=== PATIENT | female | born 1945 | race Caucasian/White ===

== ENCOUNTER → 2017-03-31 | Day surgery (SDC) | payer MEDICARE ==
[~2017-03-31] VITALS: Ht 165.1 cm; Wt 89.3 kg
[~2017-03-31] MED LIST: ACYC200C PO; B12 SUBCUTA079; BUPR150T12 PO; CHOL40003 PO; CLOB59SP3 TP; CYCL10TA9 PO; CeFAZolin 2 Gm/50 mL D5W Duplex Bag IV ONE; CeFAZolin 2 Gm/50 mL D5W IV Premix IV ONE; DULO30CA PO; Dexamethasone 4 mg/mL Inj IVPUSH PRN; Dexamethasone 4 mg/mL Inj ONE; EPHEDrine Sulfate 50 mg/mL Inj IVPUSH PRN; GABA800T2 PO; HYDR-4003 PO; HYDROcodone-APAP 5-325 mg Tablet PO PRN; LISI10TA PO; Lactated Ringer's 1,000 ML IV ONE; Lactated Ringer's 1,000 ML IV SCH; Lactated Ringer's 500 ML IV PRN; MetoCLOpramide 5 mg/mL 2 mL Inj IVPUSH PRN; Ondansetron 2 mg/mL 2 mL Inj IVPUSH PRN; Phenylephrine 10,000 mCg/mL Inj IVPUSH PRN; Propofol 10,000 mCg/mL 20 mL Inj ONE; TOPI25TA26 PO; fentaNYL-PF 50 mCg/mL 2 mL Inj IVPUSH PRN; fentaNYL-PF 50 mCg/mL 2 mL Inj ONE
[2017-03-31 11:38] VITALS: BP 134/85; PULSE 77; RESP 16; O2SAT 99
--- NOTE | 2017-03-31 14:26 | PCM.HPANE ---
Patient Data Surgeon Admitting Provider: Attending Provider:Bernadette Rocha MD Primary Care Physician:Tao Mckeon DO Other Provider:Linn Stovallingham Anesthesia Reason for Visit Gross Hematuria Ht/WT & BMI Height (Feet): 5 Height (Inches): 5 Weight (Kilograms): 87.99 Body Mass Index 32.00 Allergies Coded Allergies: hydromorphone (Verified Allergy, Severe, Severe nausea and vomition, ) oxycodone (Verified Allergy, Intermediate, Nausea vomiting. feels loopy, ) Uncoded Allergies: BEE STINGS (Allergy, Intermediate, 03/25/17) Past Anesthesia History Anesthesia History: Denies:: Abnormal Airway, Anesthesia Reactions, Difficult Intubation, Fam Anesthesia Reaction, Fam Malignant Hypertherm, Malignant Hyperthermia Diabetes History Hx Diabetes?: No MRSA MRSA: No Medications Hypertension Medication: Yes (Lisinopril) Reported Medications Acyclovir 200 Mg Jxdkbdh405 Mg PO TID Ref 0 03/25/17 Clobetasol Propionate 0.05 % Spray59 Ml TP 03/25/17 Topiramate (Topamax)25 Mg Wnzdto81 Mg PO BID Ref 0 03/25/17 Bupropion ER 150 Mg Tablet.er300 Mg PO DAILY Ref 0 12/18/16 Cholecalciferol (Vitamin D3) (Vitamin D3)4,000 Unit Capsule4,000 Unit PO DAILY 12/18/16 Cyclobenzaprine 10 Mg Jpgpon10 Mg PO HS PRN Spasm Ref 0 12/18/16 Duloxetine (Cymbalta)30 Mg Capsule.dr30 Mg PO DAILY Ref 0 12/18/16 Gabapentin 800 Mg Laqxyv278 Mg PO BID Ref 0 12/18/16 Hydrocodone-Acetaminophen 5-325 mg 1 Each Tablet1 Tablet PO Q4H PRN For Pain Ref 0 12/18/16 Lisinopril 10 Mg Hatdlh52 Mg PO DAILY Ref 0 12/18/16 [B12 ] No Conflict Check [id number] Qmnthly 12/18/16 ON HOLD PER PATIENT 06/02/13 Discontinued Reported Medications Omeprazole 20 Mg Capsule.dr20 Mg PO DAILY Ref 0 12/18/16 Topiramate 50 Mg Cgisvv45 Mg PO HS Ref 0 12/18/16 Naproxen 250 Mg Gcqolm904 Mg PO BID Ref 0 12/04/16 History History of ENT Problems?: Yes HEENT History: Positive for:: TMJ (pain ) Denies:: Abnormal Airway Cataracts Difficult Intubation Dysphagia Glaucoma Hearing Problem Sinus Problem Denture Type: None Teeth Condition: Within Normal Limits Hx of Heart Problems?: Yes Cardiovascular History: Positive for:: Hypertension Irregular Heartbeat Denies:: AICD Abdominal Aortic Aneurism Atrial Fibrillation Cardiac Surgery Chest Pain Congestive Heart Failure Coronary Artery Disease Edema Heart Murmur Pacemaker Peripheral Vascular Rheumatic Fever Thrombophlebitis Valvular Heart Disease Hx of Respiratory Problem?: No Respiratory History: Denies:: Asthma COPD Chest Surgery Cough Dyspnea Emphysema Hemoptysis Oxygen Administration Pneumonia Pulmonary Embolism Tuberculosis Use of C-PAP Machine Use of Inhalers / NEBS Hx Neurologic Problems?: No Neurological History: Positive for:: Headaches Hx of GI Problems?: No Hx of Problems?: No Female Hx: Positive for:: Problems with Breasts? Denies:: Currently Endometriosis Pelvic Inflammatory Hx Musculoskeletal Problems?: Yes Musculoskeletal History: Positive for:: Back Injury (Cervical fusions C6-7, Lower back discomfort ) Denies:: Degenerative Joint Fibromyalgia Joint Replacement Musculoskeletal Trauma Myasthenia Gravis Osteoarthritis (hands, shoulders) Rheumatoid Arthritis Systemic Lupus Hx of Psycho/Social Problems?: Yes Psycho Social History: Positive for:: Anxiety Hx Depression Hx Surgeries?: Yes (Gastric bypass 2003,tummy tuck thigh lift 2008,tubal ligation 1981) Hx Any Other Health Problems?: No Other History: Positive for:: Cancer (Breast) Hospitalization Denies:: Endocrine Disease Thyroid Disease History Blood Transfusions: Positive for:: Accept Blood Products? Denies:: Blood Transfusions Hx Diabetes: No Hx Alcohol Use: NoHx Substance Use: No Smoking Status: Never Smoker Have You Smoked inLast 12 mo: No Stop/Bang S-Snoring: Do You Snore Loudly: No T-Tired: feel tired, fatigued: No O-Obsered: Observed not breath: No P-Blood Pressure: treated: Yes B- Body Mass Index > 35 kg/m2: No A- Age over 50: Yes N- Neck Large Circumference: No G- Gender Male: No DIANA Total Score: 2 Risk Assessment Category Category 1A: Patient has history of documented sleep apnea, and HAS NOT received any narcotic, sedative or anesthesia administration during this stay. Category 1B: Patient has history of documented sleep apnea, and HAS received any narcotic , sedative or anesthesia administration during this stay Category 2: Patient has SUSPECTED Obstructive Sleep Apnea, and HAS received any narcotic , sedative or anesthesia administration during this stay. Category 3: Patient has SUSPECTED Obstructive Sleep Apnea and HAS NOT received narcotic, sedative or anesthesia administration during this stay. Category 4: Outpatient in Procedural Areas with known sleep apnea or who screen positive for High Risk via the STOP/BANG questionnaire. Exam Exam General Appearance: Alert, Oriented X3, Cooperative, No Acute Distress HEENT/AIRWAY: MP 3, Neck Movement (restricted), Mouth Opening (small) Lungs: Clear to Auscultation Heart: Exam Unremarkable Plan Impression Patient chart reviewed, patient interviewed and anesthestic plan with risks, benefits, and alternatives discussed, and informed consent obtained. ASA Physical Status: ASA2 Mod Systemic Disease Anesthetic Plan: GA Bene/Risks/Altern/Consents: Yes HP Complete Prior to Induction: Yes Ajit Nunez MD Mar 31, 2017 09:34
[2017-03-31 15:10] VITALS: BP 155/69; PULSE 70; RESP 10; O2SAT 100
--- NOTE | 2017-03-31 15:36 | PCM.ANEP1 ---
Post Anesthesia PACU Phase 1 Assessment Vital Signs Vital Signs Date Time Temp Pulse Resp B/P Pulse Ox O2 Delivery O2 Flow Rate FiO2 03/31/17 15:10 36.6 70 10 155/69 100 Nasal Cannula 03/31/17 11:38 37 77 16 134/85 99 Room Air Anesthetic Administered: GA Level of Alertness: Awake, talking ESTES's with Equal Strength: Yes Pain: No Nausea or Vomiting: No CV Function & Hydration Stable: Yes Airway Device: Oxygen Delivery: Room Air Lungs: Clear to Auscultation Dermatome Level: Full Sensation PACU Phase 2 Assessment Complications: No Patient Instructions Provided: N/A Ajit Nunez MD Mar 31, 2017 15:36
[2017-03-31 15:45] VITALS: BP 152/71; PULSE 62; RESP 12; O2SAT 98
[2017-03-31 16:04] VITALS: BP 116/93; PULSE 71; RESP 16; O2SAT 99
--- NOTE | 2017-03-31 20:30 | OP ---
[address] [address] OPERATIVE REPORT PATIENT: TREVOR NICOLE : 1945 MR#: [id number] ADMIT: 03/31/2017 JOB ID: [id number] DATE OF SURGERY: 03/31/2017 PREOPERATIVE DIAGNOSIS(ES): Bladder lesion. POSTOPERATIVE DIAGNOSIS(ES): Bladder lesion. PROCEDURE PERFORMED: 1. Pelvic exam under anesthesia. 2. Bladder biopsy and fulguration of bladder lesion. SURGEON: Bernadette Rocha MD. KISS MIXER: None. FINDINGS: 1. Bilateral orthotopic ureteral orifices. 2. Right base of bladder, including the ureteral orifice superiorly and laterally, involved with a leukoplakia-type lesion, approximately 3 cm. 3. Normal pelvic exam under anesthesia without palpable abnormal masses or lesions. 4. Small urethral caruncle at the 4 to 6 o'clock position. ANESTHESIA: General. ESTIMATED BLOOD LOSS: Less than 2 mL. DRAINS: None. SPECIMEN: 1. Bladder scrapings. 2. Bladder biopsies. COMPLICATION: None. CONDITION: Stable. INDICATION FOR PROCEDURE: The patient is a 71-year-old woman with gross hematuria. Cystoscopy in clinic was difficult given poor visualization in the presence of gross hematuria. Today she states that she has not had any blood in her urine grossly for the last two days. DESCRIPTION OF THE PROCEDURE: After informed consent was obtained, the patient was taken to the operating room. A time-out was performed identifying correct patient, surgical site, and procedure. General anesthesia was smoothly induced. She was given intravenous antibiotics just prior to start of procedure. She was placed in the lithotomy position and all pressure points were identified and appropriately padded. A bimanual pelvic exam was performed. It was normal. Her genitals were then prepped and draped in the usual sterile fashion. A 20-Lux[place] resectoscope was applied to the patient's urethra and advanced into the bladder. The urine was quite debris-filled. The patient's bladder had to be irrigated and drained a few times in order to visualize the bladder. Both ureteral orifices were seen in orthotopic position. Along the right bladder base, involving the superior and lateral aspects of the right ureteral orifice was a flaky white material. The loop was used to scrape off this friable-appearing tissue. This was drained from the bladder and the scrapings were sent off to Pathology. Next, it was attempted to resect the bladder lesion, though it seems that this area was thin-walled. It was then decided to use cold cup biopsy forceps. Multiple biopsies were taken in this area. There appeared to be grossly viable tissue along with it for sampling. The loop was then used to cauterize the biopsy sites, as well as the lesion in total. The bladder was drained. It was reinspected. There was no bleeding. The patient was reversed from general anesthesia and taken to the PACU in good and stable condition. KRYSTIAN
== END | disposition home or self-care (01) ==
LOC: SAS 10:46
PROVIDERS: ATTEND Urology
DX: D30.3 Benign neoplasm of bladder (principal); R31.0 Gross hematuria; I10 Essential (primary) hypertension; Z79.899 Other long term (current) drug therapy; Z88.5 Allergy status to narcotic agent; Z91.030 Bee allergy status
CPT/HCPCS: 52234; J0690; J1100; J3010; J7120

== ENCOUNTER → 2017-04-21 | Day surgery (SDC) | payer MEDICARE ==
[2017-04-21] VITALS (8 sets, daily range): BP systolic 120–139; BP diastolic 64–69; PULSE 69–77; RESP 9–16; O2SAT 94–100
[~2017-04-21] VITALS: Ht 165.1 cm; Wt 88.2 kg
[~2017-04-21] MED LIST changes: +Bupivacaine-MPF 0.5% W/EPI 30 mL Inj INFILTRATE ONE; -CeFAZolin 2 Gm/50 mL D5W Duplex Bag IV ONE; -CeFAZolin 2 Gm/50 mL D5W IV Premix IV ONE; +EPHEDrine/NS 5 mg/mL 5 mL Syringe ONE; +Ondansetron 2 mg/mL 2 mL Inj ONE
--- NOTE | 2017-04-21 10:39 | PCM.HPANE ---
Patient Data Surgeon Admitting Provider: Attending Provider:Calvin Ellison MD Primary Care Physician:Tao Mckeon DO Other Provider:Leanna Stovall Anesthesia Reason for Visit Left Breast Intraductal Carcinoma In Situ Ht/WT & BMI Height (Feet): 5 Height (Inches): 5 Weight (Kilograms): 88.45 Body Mass Index 32.00 Allergies Coded Allergies: hydromorphone (Verified Allergy, Severe, Severe nausea and vomition, ) oxycodone (Verified Allergy, Intermediate, Nausea vomiting. feels loopy, ) Uncoded Allergies: BEE STINGS (Allergy, Intermediate, 03/25/17) Past Anesthesia History Anesthesia History: Denies:: Abnormal Airway, Anesthesia Reactions, Difficult Intubation, Fam Anesthesia Reaction, Fam Malignant Hypertherm, Malignant Hyperthermia Diabetes History Hx Diabetes?: No MRSA MRSA: No Medications Hypertension Medication: Yes Home Meds Incl Beta Bhavin: No Reported Medications Acyclovir 200 Mg Fiplomz252 Mg PO TID Ref 0 03/25/17 Clobetasol Propionate 0.05 % Spray59 Ml TP 03/25/17 Topiramate (Topamax)25 Mg Gijzmv08 Mg PO BID Ref 0 03/25/17 Bupropion ER 150 Mg Tablet.er300 Mg PO DAILY Ref 0 12/18/16 Cholecalciferol (Vitamin D3) (Vitamin D3)4,000 Unit Capsule4,000 Unit PO DAILY 12/18/16 Cyclobenzaprine 10 Mg Icyumc76 Mg PO HS PRN Spasm Ref 0 12/18/16 Duloxetine (Cymbalta)30 Mg Capsule.dr30 Mg PO DAILY Ref 0 12/18/16 Gabapentin 800 Mg Hqwlll913 Mg PO BID Ref 0 12/18/16 Hydrocodone-Acetaminophen 5-325 mg 1 Each Tablet1 Tablet PO Q4H PRN For Pain Ref 0 12/18/16 Lisinopril 10 Mg Radlfs51 Mg PO DAILY Ref 0 12/18/16 Discontinued Reported Medications [B12 ] No Conflict Check [id number] Qmnthly 12/18/16 ON HOLD PER PATIENT 06/02/13 History History of ENT Problems?: Yes HEENT History: Positive for:: TMJ (pain ) Denies:: Abnormal Airway Cataracts Difficult Intubation Dysphagia Hearing Problem Sinus Problem Denture Type: None Teeth Condition: Within Normal Limits Hx of Heart Problems?: Yes Cardiovascular History: Positive for:: Hypertension Irregular Heartbeat Denies:: AICD Abdominal Aortic Aneurism Atrial Fibrillation Cardiac Surgery Chest Pain Congestive Heart Failure Edema Heart Murmur Pacemaker Rheumatic Fever Thrombophlebitis Valvular Heart Disease Hx of Respiratory Problem?: No Respiratory History: Denies:: Asthma COPD Chest Surgery Cough Dyspnea Emphysema Hemoptysis Oxygen Administration Pneumonia Pulmonary Embolism Tuberculosis Use of C-PAP Machine Hx Neurologic Problems?: No Neurological History: Positive for:: Headaches Denies:: CVA Multiple Sclerosis Parkinson's Disease Seizures Hx of GI Problems?: No Hx of Problems?: Yes Other Pertinent History: hx of turbt on March Female Hx: Positive for:: Problems with Breasts? (left breast ca current admission problem) Denies:: Currently Endometriosis Pelvic Inflammatory Skin History: Denies:: History Skin Disorders? Hx Musculoskeletal Problems?: Yes Musculoskeletal History: Positive for:: Back Injury (Cervical fusions C6-7, Lower back discomfort ) Denies:: Degenerative Joint Joint Replacement Musculoskeletal Trauma Systemic Lupus Hx of Psycho/Social Problems?: Yes Psycho Social History: Positive for:: Anxiety Hx Depression Hx Surgeries?: Yes (Gastric bypass 2003,tummy tuck thigh lift 2008,tubal ligation 1981) Hx Any Other Health Problems?: Yes Other History: Positive for:: Cancer (Breast) Hospitalization Denies:: Endocrine Disease Thyroid Disease History Blood Transfusions: Denies:: Blood Transfusions Hx Diabetes: No Hx Alcohol Use: NoHx Substance Use: No Smoking Status: Never Smoker Have You Smoked inLast 12 mo: No Stop/Bang S-Snoring: Do You Snore Loudly: No T-Tired: feel tired, fatigued: No O-Obsered: Observed not breath: No P-Blood Pressure: treated: Yes B- Body Mass Index > 35 kg/m2: No A- Age over 50: Yes N- Neck Large Circumference: No G- Gender Male: No DIANA Total Score: 2 DIANA Risk Assessment: Low Risk, <3 Yes Risk Assessment Category Category 1A: Patient has history of documented sleep apnea, and HAS NOT received any narcotic, sedative or anesthesia administration during this stay. Category 1B: Patient has history of documented sleep apnea, and HAS received any narcotic , sedative or anesthesia administration during this stay Category 2: Patient has SUSPECTED Obstructive Sleep Apnea, and HAS received any narcotic , sedative or anesthesia administration during this stay. Category 3: Patient has SUSPECTED Obstructive Sleep Apnea and HAS NOT received narcotic, sedative or anesthesia administration during this stay. Category 4: Outpatient in Procedural Areas with known sleep apnea or who screen positive for High Risk via the STOP/BANG questionnaire. Exam Exam General Appearance: Alert HEENT/AIRWAY: MP 2, Neck Movement (limited extension, 3 fb) Lungs: Clear to Auscultation Heart: Regular Rate/Rhythm Plan Impression Patient chart reviewed, patient interviewed and anesthestic plan with risks, benefits, and alternatives discussed, and informed consent obtained. NPO per Anesth. Guidelines: Yes ASA Physical Status: ASA2 Mod Systemic Disease Anesthetic Plan: GA Bene/Risks/Altern/Consents: Yes HP Complete Prior to Induction: Yes Pramod Morales MD Apr 21, 2017 08:03
--- NOTE | 2017-04-21 11:19 | PCM.SURGOP ---
Surgical Operative Report Date of Service: Apr 21, 2017 Pre Operative Diagnosis Left breast DCIS Post Operative Diagnosis Same Procedure: Wire localized left partial mastectomy Surgeon and Court Crier: Surgeon: Calvin Ellison MD Assistants: Young Narvaez MD PGY-3; Facundo Garcia DO PGY-1 Indication for Procedure 71-year-old woman who was found on screening mammogram to have fine linear calcifications in the left breast 12 o'clock position. Stereotactic biopsy showed high-grade DCIS, ER positive, CO negative. Her breast MRI showed an additional 0.4 cm round lesion of mass like enhancement, which could not be correlated on ultrasound. She had an MRI guided biopsy which showed fibrocystic change. The known area of DCIS measured 1.7 cm on MRI. After discussion of risks and benefits, she agreed to proceed with wire localized partial mastectomy. Findings: The lesion was successfully localized, confirmed on specimen mammogram. Procedure Details Preoperatively, the patient underwent wire localization in the Breast [facility]. She was then brought to the operating room where she underwent smooth induction of general anesthesia with an LMA. She was placed in the supine position with the left arm out, and was prepped and draped in wide sterile fashion. A procedural pause was performed according to the SCOAP checklist, and all were found to be in agreement. A transverse incision was made in the left superior breast, encompassing the wire into the incision. Skin flaps were raised superiorly and inferiorly. Circumferential dissection was then carried out around the wire, which was not encountered during dissection. Deep margins of dissection were the chest wall, although pectoralis fascia was not resected. The left breast tissue was dissected free, oriented with suture, and a specimen radiograph was obtained. This showed that the mammographic lesion along with the clip had been successfully localized. The lesion appeared to be or less in the center of the specimen. It was sent for permanent pathology. The cavity was marked with hemoclips circumferentially. Breast parenchymal flaps were then elevated off the chest wall circumferentially. The breast parenchyma was closed with interrupted 3-0 Vicryl sutures. The skin incision was closed with a running 4- 0 Vicryl subcuticular stitch. Steri-Strips and sterile dressings were applied. At the end of the case all needle and sponge counts were correct 2. The patient was awakened from anesthesia without difficulty, and taken to the recovery room in satisfactory condition, having tolerated the procedure well. Complications There were no periprocedural complications identified. Surgical Specimen Removed: Yes Specimen sent to Pathology: Yes Surgical Specimen description: Left breast tissue, upper outer quadrant. Anesthetic Plan: GA Grafts, Implants: None Output, Estimated Blood Loss: 5 Blood Administration during akhtar: No Drains: None Catheters: None copies to: Tao Mckeon DO; Bj Pacheco DO; Parish Corley MD, Joshua D MD Apr 21, 2017 11:19
--- NOTE | 2017-04-21 11:36 | PCM.DISURG ---
Surgical Discharge Instruction Date of Service Apr 21, 2017 Dates of Hospitalization Date of Hospital Admission Providers Admitting Physician: Primary Care Physician: Tao Mckeon DO Attending Physician: Calvin Ellison MD Discharge Diagnosis Post Operative diagnosis Same Diet Discharge Diet: No restrictions Activity Discharge Activity-General: Be up and about, Activity as pain allows, No driving while taking narcotic Dressing and Incisional Care Dressing Care: Allow Steri Stripes to fall off, Remove outer dressing after 24 hrs Hygiene: May shower after (24 hours), DO NOT soak incision under water, NO bathtub, hot tub or whirlpool Follow Up Plan Follow Up Plan in 2-3 weeks. We will call you with your pathology result. Call at any time with questions or concerns. Call your provider for: Fever, Chills, Wound redness, Increasing wound pain, Discharge @ incision, pus discharge Ghulam Narvaez MD Apr 21, 2017 11:36
--- NOTE | 2017-04-21 11:52 | PCM.ANEP1 ---
Post Anesthesia PACU Phase 1 Assessment Vital Signs Vital Signs Date Time Temp Pulse Resp B/P Pulse Ox O2 Delivery O2 Flow Rate FiO2 04/21/17 11:45 36.3 71 12 135/69 94 Room Air 04/21/17 11:40 71 10 136/68 95 Room Air 04/21/17 11:35 70 13 134/66 99 Room Air 04/21/17 11:30 69 10 137/66 100 Simple Mask 8 04/21/17 11:24 36.2 69 9 139/64 100 Simple Mask 8 04/21/17 09:01 36.5 73 16 120/65 97 Room Air Anesthetic Administered: GA Level of Alertness: Sleepy, easy to arouse ESTES's with Equal Strength: Yes Pain: No Nausea or Vomiting: No CV Function & Hydration Stable: Yes Airway Device: Oxygen Delivery: Simple Mask Lungs: Clear to Auscultation Dermatome Level: Full Sensation PACU Phase 2 Assessment Complications: No Follow up Care: N/A Patient Instructions Provided: N/A Pramod Morales MD Apr 21, 2017 11:52
--- NOTE | 2017-04-21 13:33 | DRSVH ---
SPECIMEN LEFT BREAST: 04/21/2017 CLINICAL: Breast specimen. Correlation is made to exams dated: 04/21/2017 localization and 02/26/2017 stereotactic biopsy - [facility]. A surgical specimen was imaged for the previous biopsy site located in the left breast at 12 o'clock middle depth. IMPRESSION: SPECIMEN The imaged specimen includes a biopsy clip and the distal portion of the localization wire. This exam was interpreted at Station ID: [id number]. Sadie Colvin M.D. lk/:04/21/2017 12:56:00 Additional referring physicians: WEN MOSQUEDA GARY R. ANDGA
== END | disposition home or self-care (01) ==
LOC: SAS 08:38
PROVIDERS: ATTEND Student in an Organized Health Care Education/Training Program
DX: D05.12 Intraductal carcinoma in situ of left breast (principal); Z17.0 Estrogen receptor positive status [ER+]; E53.8 Deficiency of other specified B group vitamins; E61.1 Iron deficiency; G43.909 Migraine, unspecified, not intractable, without status migrainosus; M19.90 Unspecified osteoarthritis, unspecified site; I10 Essential (primary) hypertension; F32.9 Major depressive disorder, single episode, unspecified; G25.81 Restless legs syndrome
CPT/HCPCS: 19301; 76098; J1100; J2250; J2405; J2704; J3010; J7120